=== PATIENT | female | born 1955 | race Caucasian/White ===

== ENCOUNTER 2019-08-04 07:27 | Inpatient (IN) | payer BC, MEDICARE ==
[2019-08-04] MEDS ORDERED: PIPERACILLIN/TAZOBACTAM 4.5 GM VIAL IV ONE (07:41)
[2019-08-04] MEDS ORDERED: ATROPINE SULFATE INJ 1 MG/10 ML DISP.SYRIN IV ONE (07:41)
[2019-08-04] MEDS ORDERED: VANCOMYCIN HCL INJ 1000 MG VIAL IV ONE (07:41)
[2019-08-04] MEDS ORDERED: DEXTROSE 5%-WATER 250 ML with NOREPINEPHRINE BITARTRATE 4 MG IV PRN ×2 (07:41)
[2019-08-04] MEDS ORDERED: NORMAL SALINE IV ONE (07:44)
--- NOTE | 2019-08-04 07:55 | ER Document Report ---
ED General - General Chief Complaint: Altered Mental Status Stated Complaint: ALTERED MENTAL STATUS Time Seen by Provider: 08/04/19 07:40 Primary Care Provider: LEAH ROMERO MD [Primary Care Provider] - Follow up as needed TRAVEL OUTSIDE OF THE [place] IN LAST 30 DAYS: No - HPI Notes: Chief complaint: Altered mental status and hypotension HPI: 63-year-old female with history of end-stage renal disease on dialysis brought in by EMS after call for altered mental status. No family present. Very limited history available from EMS crew. Apparently this lady had an outpatient lung biopsy done yesterday for a pulmonary nodule. Family reported that she was at her usual baseline when she went to bed last night. When she awakened this morning she was very altered but moving all 4 extremities. EMS was called. They documented bedside glucose of 265. Family members advised them that she had been given a dose of some type of benzodiazepine last night before going to sleep. EMS also documented a systolic blood pressure of 60. They were unable to get any IV access in the field and transported her here. Patient is minimally responsive and able to tell me her name but cannot really provide much other history. - Related Data Allergies/Adverse Reactions: levofloxacin [From Levaquin] Allergy (Verified 08/04/19 08:12) NSAIDS (Non-Steroidal Anti-Inflamma Allergy (Verified 08/04/19 08:12) Past Medical History - General Information source: Patient, Emergency Med Personnel, [facility] Records Cannot obtain history due to: Altered mental status - Social History Smoking Status: Unknown if Ever Smoked Chew tobacco use (# tins/day): No Frequency of alcohol use: None Drug Abuse: None Lives with: Family Family History: Reviewed & Not Pertinent Patient has homicidal ideation: No Review of Systems - Review of Systems -: Yes ROS unobtainable due to patient's medical condition Physical Exam - Vital signs Vitals: Temp 98.7 F 08/04/19 07:28 - Notes Notes: GENERAL: Female patient of approximately stated age who is obtunded. SKIN: Pale, cool and slightly moist. HEAD: Normocephalic atraumatic. EYES: Pupils are mid position equal and sluggish in reaction to light. Conjunctivae and sclerae clear. EARS: CANALS AND TMS CLEAR. NOSE: CLEAR. MOUTH: Moist mucosa. Edentulous. No stridor or edema. No drooling. NECK: Supple. No masses or thyromegaly. No adenopathy. Carotids 2+ without bruits. No JVD. BACK: Symmetrical without tenderness. CHEST: Respirations unlabored. Breath sounds clear and symmetrical. Patient has a Band-Aid dressing over the right side of the chest at the posterior axillary line at about the 10th interspace. HEART: Healed CABG scar present. Bradycardic regular rhythm. No murmur gallop or rub. ABDOMEN: Mildly obese. Healed right upper quadrant scar present soft nontender without masses, organomegaly or rebound. Bowel sounds normally active. No bruits. GENITALIA: Deferred. EXTREMITIES: AV fistula present left upper extremity with positive thrill and bruit no edema. No calf tenderness. Cap refill less than 1.5 seconds. Dorsalis pedis and posterior tibial pulses 3+ and symmetrical. NEUROLOGICAL: GCS 12 total. Opens eyes to loud verbal stimuli. Localizes pain. Oriented to person and place but not time. Cranial nerves II through XII intact. Moving extremities symmetrically normal tone. Course - Re-evaluation Re-evalutation: 08/04/19 08:18 Patient has GCS of about 12. She looks shocky and her blood pressure is around 60 systolic. She has a right bundle branch block and junctional rhythm on EKG. I still have her potassium back which has been requested. Lactate is elevated at 7.5. Blood cultures have been pulled. Sepsis protocol initiated. IV vancomycin and Zosyn administered. Pressure up to 87 systolic with initiation of fluid bolus and levofed. Chest x-ray reviewed and shows no obvious pneumothorax. Galarza catheter is been placed and urine is present. Urinalysis still unreported. Present findings discussed with Dr. Cooper from critical care unit and he is excepted the patient for admission. - Vital Signs Vital signs: Temp Pulse Resp BP Pulse Ox 98.7 F 93 08/04/19 07:28 08/04/19 07:30 - Laboratory Laboratory results interpreted by me: 08/04/19 07:45 Lactic Acid 7.5 H - Diagnostic Test Radiology results interpreted by me: 08/04/19 08:20 Preliminary review of the portable chest x-ray shows atelectasis versus early infiltrate right base. No pneumothorax. Postsurgical changes from prior CABG. - EKG Interpretation by Me Additional EKG results interpreted by me: 08/04/19 08:20 12-lead EKG #1 at 0731 hrs. reviewed contemporaneously by me showing accelerated junctional rhythm and right bundle branch block. No acute ST or T wave changes. QRS axis is +59 degrees. Rate is 51. There are no acute ST/T wave changes. There is no earlier tracing for comparison. Second EKG a repeat obtained at 0817 hrs. reviewed contemporaneously by me. This shows a sinus tachycardia with a rate of 101. QRS axis is 61 degrees. There is some widening of the QRS interval consistent with right bundle branch block. No acute ST/T wave changes are present. The junctional rhythm has now converted to a sinus tachycardia. Critical Care Note - Critical Care Note Total time excluding time spent on procedures (mins): 35 - Sepsis protocol initiated. I/O placement. Junctional cardiac rhythm treated with IV atropine. Levophed drip initiated. ICU admission by Dr. Cooper. Discharge - Discharge Clinical Impression: Shock, Altered mental status, Junctional cardiac arrhythmia Condition: Critical Disposition: ADMITTED INPATIENT Admitting Provider: Kenneth (Informal Waiter/Waitress) Unit Admitted: ICU Referrals: LEAH ROMERO MD [Primary Care Provider] - Follow up as needed
--- NOTE | 2019-08-04 08:39 | RADIOLOGY REPORT (SQ) ---
EXAM DESCRIPTION: CHEST SINGLE VIEW IMAGES COMPLETED DATE/TIME: 08/04/2019 7:05 am REASON FOR STUDY: shock COMPARISON: None. EXAM PARAMETERS: NUMBER OF VIEWS: One view. TECHNIQUE: Single frontal radiographic view of the chest acquired. RADIATION DOSE: NA LIMITATIONS: None. FINDINGS: LUNGS AND PLEURA: Are patchy perihilar and alveolar opacities in both lungs. Probable sma ll left pleural effusion. Peripheral hazy opacity in the right mid lung. No pneumothorax. MEDIASTINUM AND HILAR STRUCTURES: No masses. Contour normal. HEART AND VASCULAR STRUCTURES: Postoperative changes consistent with prior CABG. Moderate cardiomega ly. Indistinctness of the vasculature. BONES: No acute findings. HARDWARE: None in the chest. OTHER: No other significant finding. IMPRESSION: Moderate cardiomegaly with mild pulmonary edema. Hazy peripheral opacity in the right m id lung may represent infectious or inflammatory process. TECHNICAL DOCUMENTATION: JOB ID: [id number] 2010 [employer]- All Rights Reserved Reading location - IP/workstation name: [email or web address]
[2019-08-04] MEDS ORDERED: DEXTROSE 40% GEL 15 GM TUBE PO PRN ×2 (08:40)
[2019-08-04] MEDS ORDERED: DEXTROSE 50%-WATER 25 GM/50 ML DISP.SYRIN IV PRN ×2 (08:40)
[2019-08-04] MEDS ORDERED: GLUCAGON,HUMAN RECOMB 1 MG INJ SUBCUT PRN (08:40)
[2019-08-04 08:58] LABS: APPEARANCE,URINE SLIGHTLY-CLOUDY; BILIRUBIN,URINE NEGATIVE (NEGATIVE); COLOR,URINE YELLOW; GLUCOSE, URINE >=500 mg/dL (NEGATIVE); KETONES,URINE NEGATIVE (NEGATIVE); PROTEIN,URINE >=500 mg/dL (NEGATIVE); URINE SPECIFIC GRAVITY 1.015; UROBILINOGEN,URINE NEGATIVE mg/dL (<2.0)
[2019-08-04 09:00] LABS: HEMOGLOBIN 10.8 g/dL (12.0-15.5); MEAN CORPUSCULAR HEMOGLOBIN 33.7 pg (27.0-33.4); MEAN CORPUSCULAR HGB CONC 32.8 g/dL (32.0-36.0); MEAN CORPUSCULAR VOLUME 103 fl (80-97); PLATELET COUNT 318 10^3/uL (150-450); RED BLOOD COUNT 3.21 10^6/uL (3.72-5.28); RED CELL DISTRIBUTION WIDTH 14.9 % (11.5-14.0); WHITE BLOOD COUNT 11.6 10^3/uL (4.0-10.5)
[2019-08-04 09:03] LABS: VENOUS BLOOD BASE EXCESS -13.5 mmol/L; VENOUS BLOOD HCO3 16.4 mmol/L (20-32); VENOUS BLOOD PCO2 54.8 mmHg (35-63)
[2019-08-04 09:05] LABS: VENOUS BLOOD PH 7.09 (7.30-7.42)
--- NOTE | 2019-08-04 09:14 | RADIOLOGY REPORT (SQ) ---
EXAM DESCRIPTION: CT HEAD WITHOUT IMAGES COMPLETED DATE/TIME: 08/04/2019 8:53 am REASON FOR STUDY: altered mental status ams COMPARISON: None. TECHNIQUE: Axial images acquired through the brain without intravenous contrast. Images reviewed wi th bone, brain and subdural windows. Additional sagittal and coronal reconstructions were generated. Images stored on PACS. All CT scanners at this facility use dose modulation, iterative reconstruction, and/or weight based d osing when appropriate to reduce radiation dose to as low as reasonably achievable (ALARA). [facility]: Dose Right [facility]: CareDose [facility]: Dose Right [facility]: Teradose 4D [facility]: [place] RADIATION DOSE: CT Rad equipment meets quality standard of care and radiation dose reduction techniq ues were employed. CTDIvol: 53.2 mGy. DLP: 991 mGy-cm. LIMITATIONS: None. FINDINGS: There is no acute intracranial hemorrhage, vascular territorial infarct, extra-axial fluid collection, mass effect or midline shift. The case-white matter differentiation is preserved. Ther e is no effacement of the cerebral sulci or basal subarachnoid cisterns. The caliber of the ventricl es is concordant with the degree of sulcation. The orbits and globes are intact. The paranasal sinuses are clear. There is no fracture of the calv arium. IMPRESSION: No acute intracranial abnormality. EVIDENCE OF ACUTE STROKE: NO. COMMENT: Quality ID # [id number]: Final reports with documentation of one or more dose reduction techniques (e.g., Automated exposure control, adjustment of the mA and/or kV according to patient size, use of iterative reconstruction technique) TECHNICAL DOCUMENTATION: JOB ID: [id number] 2010 [employer]- All Rights Reserved Reading location - IP/workstation name: [email or web address]
[2019-08-04] MEDS ORDERED: NOREPINEPHRINE BITARTRATE INJ/PF 4 MG/4 ML SDV IV ONE (09:15)
[2019-08-04 09:18] LABS: INTERNATIONAL RATION (INR) 1.34; PROTHROMBIN TIME 16.7 SEC (11.4-15.4)
[2019-08-04 09:23] LABS: ALBUMIN 3.1 g/dL (3.5-5.0); ALKALINE PHOSPHATASE 131 U/L (38-126); AMYLASE 39 U/L (30-110); ANION GAP 16 (5-19); ASPARTATE AMINO TRANSFERASE 190 U/L (14-36); BILIRUBIN,DIRECT 1.2 mg/dL (0.0-0.4); BILIRUBIN,TOTAL 2.1 mg/dL (0.2-1.3); BLOOD UREA NITROGEN 32 mg/dL (7-20); CALCIUM 8.2 mg/dL (8.4-10.2); CARBON DIOXIDE 15 mmol/L (22-30); CHLORIDE 100 mmol/L (98-107); GLUCOSE 191 mg/dL (75-110); PHOSPHORUS 9.2 mg/dL (2.5-4.5)
[2019-08-04 09:29] LABS: ABSOLUTE LYMPHOCYTES# (MANUAL) 1.6 10^3/uL (0.5-4.7); ABSOLUTE MONOCYTES # (MANUAL) 0.7 10^3/uL (0.1-1.4); BAND NEUTROPHILS % (MANUAL) 1 % (3-5); BASOPHILS % (MANUAL) 0 % (0-2); EOSINOPHILS % (MANUAL) 0 % (0-6); LYMPHOCYTES % (MANUAL) 14 % (13-45); MONOCYTES % (MANUAL) 6 % (3-13); NUCLEATED RED BLOOD CELLS 1 /100 WBC (0); PLATELET COMMENT ADEQUATE; SEGMENTED NEUTROPHILS % (MAN) 79 % (42-78); TOTAL CELLS COUNTED 100
[2019-08-04 09:30] LABS: POLYCHROMASIA SLIGHT
[2019-08-04] MEDS ORDERED: HEPARIN SOD (PORCINE) 5,000 UNIT/ML 1 ML VIAL SUBCUT ONE (09:30)
[2019-08-04 09:31] LABS: ANISOCYTOSIS SLIGHT
[2019-08-04 09:32] LABS: OVALOCYTES SLIGHT; POIKILOCYTOSIS SLIGHT
[2019-08-04 09:33] LABS: URINE AMPHETAMINES SCREEN NEGATIVE; URINE BARBITURATES SCREEN NEGATIVE; URINE COCAINE SCREEN NEGATIVE; URINE MARIJUANA (THC) SCREEN NEGATIVE; URINE METHADONE SCREEN NEGATIVE; URINE PHENCYCLIDINE SCREEN NEGATIVE
[2019-08-04 09:35] LABS: URINE BENZODIAZEPINES SCREEN UNCONFIRMED POSITIVE
[2019-08-04 09:35] LABS: POTASSIUM 6.6 mmol/L (3.6-5.0)
[2019-08-04] MEDS ORDERED: SODIUM BICARBONATE 8.4% INJ 50 MEQ/50 ML DISP.SYRIN IV ONE ×2 (09:39→10:15)
[2019-08-04 09:47] LABS: CREATINE KINASE MB 3.35 ng/mL (<4.55)
[2019-08-04 09:49] LABS: TROPONIN I 0.244 ng/mL
[2019-08-04 09:53] LABS: FREE T4 (FREE THYROXINE) 1.72 ng/dL (0.78-2.19)
[2019-08-04 10:07] LABS: THYROID STIMULATING HORMONE 1.88 uIU/mL (0.47-4.68)
[2019-08-04] MEDS ORDERED: DEXTROSE 50%-WATER 25 GM/50 ML DISP.SYRIN IV ONE (10:15)
[2019-08-04] MEDS ORDERED: INSULIN REG, HUMAN 100 UNIT/ML 3 ML VIAL (PYX) IV ONE (10:15)
[2019-08-04] MEDS ORDERED: CALCIUM GLUCONATE 1000 MG/10 ML INJ IV ONE (10:15)
[2019-08-04 11:26] LABS: ARTERIAL BLOOD H2CO3 1.87 mmol/L (1.05-1.35); ARTERIAL BLOOD HCO3 21.9 mmol/L (20-24); ARTERIAL BLOOD PCO2 62.1 mmHg (35-45); ARTERIAL BLOOD PO2 68.2 mmHg (80-100); ARTERIAL BLOOD TOTAL CO2 23.8 mmol/L (21-25)
[2019-08-04 11:29] LABS: ARTERIAL BLOOD PH 7.17 (7.35-7.45)
--- NOTE | 2019-08-04 12:49 | CRITICAL CARE ADMISSION REPORT ---
HPI Date:: 08/04/19 Time:: 07:40 Reason for ICU Reason:: Shock with sepsis and acute metabolic encephalopathy HPI: Demi Lau is a 63-year-old female who appears to have a history of CKD 5 on dialysis and some type of lung process that required a lung biopsy at [facility] yesterday. According to the emergency room she came in with altered mental status. There is a question and concerned that she was given benzodiazepines last night. She was apparently found altered by her family and EMS was called. We have contacted family but unfortunately they have not been in contact with us and they were not in the emergency room at time of the evaluation. The ED discussed the fact the patient had bradycardia with hypotension that was treated with atropine and transiently with Levophed. She had very difficult IV access and an intraosseous catheter was placed. Her EKG showed bradycardia which was an accelerated junctional rhythm and a right bundle branch block. It did not have any robust ST segment changes however there was some widening of some of the QRS complex because of the block. I evaluated the patient in the emergency room and while in the ICU. It was very difficult to get an examination from her and she was very lethargic. Labs were pending at time of our evaluation but what we do know is that her pH was 7 with a lactic acid of 7.5. We could not get any endorsement for chest pain, shortness of breath, fever, cough. Initial work-up in the emergency room was done including labs. Some of the labs are still pending CAT scan shows negative for any head pathology chest x-ray shows a right upper lobe mass but no pneumothorax specifically. Repeat EKG after treatment shows a sinus tachycardia with right bundle branch block pattern and a left fascicular block pattern. She does have surgical sternal changes and tracheal scar suggesting that she has had some type of cardiac surgery in the past. There are no previous admissions here for evaluation for past medical history. I was able to finally get in touch with the patient's . He states that she did in fact have a biopsy yesterday and was given medication to help with anxiolysis and pain. She took that in the afternoon. She had been doing well but in the middle the night had to use the bathroom and was very discoordinated and confused. He was unable to get her to the bathroom because of her change in status. This is what prompted the call to EMS. He denies that she has had any fever, chills, cough or night sweats. There is no source for infection as far as he can tell. She does urinate. As far as her past medical history which will be further elucidated below, she has a history of type 2 diabetes and hypertension as well as obesity. She had a CABG at what appears to be [facility] or [facility] a number of years ago which led to the renal failure. She was quite ill for about 30 days. He does endorse that there is a lung mass which prompted the biopsy. No history of alcohol use. She is a former smoker but stopped 2 years ago. Her animal health technician is Dr. Mueller from [facility] but she goes to [facility] for her dialysis Wednesday. They decided to change her to Wednesday and Wednesday for a more convenient schedule. The stated that he had her dialysis set up for tomorrow (Wednesday) at 1030. History obtained from:: ED - Diagnosis/Plan (1) Shock Is this a current diagnosis for this admission?: Yes Plan: Appears to be sepsis however other forms of shock are being evaluated. (2) Lactic acidosis Is this a current diagnosis for this admission?: Yes (3) Acute renal failure superimposed on chronic kidney disease, on chronic dialysis Is this a current diagnosis for this admission?: Yes (4) Acute metabolic encephalopathy Is this a current diagnosis for this admission?: Yes Plan: Suspect related to benzodiazepine intent not declared (5) Lung mass Is this a current diagnosis for this admission?: Yes (6) Hyperkalemia, diminished renal excretion Is this a current diagnosis for this admission?: Yes (7) Paroxysmal junctional tachycardia Is this a current diagnosis for this admission?: Yes Plan Summary: Respiratory: Patient does not appear to have any current respiratory issues other than what appears to be a right lung mass. We will try to acquire medical records from the [facility] to determine what the issues are. She appears to have a chemical marker in the right upper chest suspicious for radiation marker. We will also attempt to contact the family. Infectious: Although this appears to be a benzodiazepine induced encephalopathy with parameters suggestive of hypercarbia related to this she does have lactic acidosis, hypothermia and elevation in white count to suggest that this is sepsis related. Have placed on broad-spectrum antibiotics and will continue these. Obviously cultures are being done and source is under investigation. Cardiac: Will attempt to obtain echocardiogram at bedside to determine function. Patient was hypotensive however this may be a manifestation related to acidosis and hyperkalemia. Continue to monitor and adjust vasopressor therapy as needed. Follow troponin and CK to rule out rhabdomyolysis and cardiac dysfunction. She does have evidence of prior cardiac surgery and will attempt to obtain records to determine what type of surgery was done. Hematologic: Patient has currently no significant hematologic issues. She does have a leukocytosis suggestive of infection and mild anemia which appears to be chronic and related to her disease. She does have mild bandemia as well. Platelet count is acceptable 318 Endocrine: Will check a cortisol level. TSH appears acceptable. Unsure if the patient has diabetes and so will check Accu-Cheks insulin as needed. Renal: Patient obviously has CKD 5 hemodialysis dependent renal failure. Given her acidosis and hyperkalemia in addition to the benzodiazepine in her system will need dialysis today. Have consulted the nephrology service. Metabolic: Patient has hyperkalemia with acidosis. With obvious EKG changes have given her calcium lined with bicarbonate and insulin with glucose. She does have a lactic acidosis which may also be reflective of renal failure and sepsis. Again etiology is under investigation. On examination I am not finding any areas to suggest ischemic bowel. Alimentary: No active gastrointestinal issues. Follow supportively Neurologic: Patient has acute metabolic encephalopathy. This may be secondary to benzodiazepine use last evening in the face with of renal failure. She also has hypotension and given what appears to be peripheral vascular disease this hypotension may have caused decreased blood flow to the brain. CAT scan is unremarkable. Will follow and monitor. Have asked for ammonia level and urine drug screen which only showed benzodiazepines in her system. This does not rule out other surreptitious medications and will attempt to obtain history from family. There is no indication that this represents an infectious MORPHOLOGIST process but will have low threshold to evaluate for need for spinal tap. Sedation: No sedation. Patient appears to have benzodiazepines in her system. Unable to determine whether this was a accidental overdose or iatrogenic given her renal failure. We will continue to monitor. Lines/Tubes: Patient has interosseous catheter secondary to poor venous access. Will obviously need a central line. Other: [] Past Medical History Cardiac Medical History: Reports: Coronary Artery Disease, Myocardial Infarction, Hyperlipidema, Hypertension Endocrine Medical History: Reports: Diabetes Mellitus Type 2 Renal/ Medical History: Reports: Chronic Kidney Disease, End Stage Renal Disease, Other - On dialysis Malignancy Medical History: Reports: Other - Has questionable lung mass Psychiatric Medical History: Reports: None Denies: Alcohol Dependency Hematology: Reports: None Past Surgical History Past Surgical History: Reports: Cardiac Catheterization, Coronary Artery Bypass Graft - X4 Social/Family History - Social History Lives with: Family, Spouse/Significant other Smoking Status: Former Smoker Frequency of Alcohol Use: None Hx Recreational Drug Use: No - Family History Family History: CAD, DM, Malignancy Family History: Mother at age 61 secondary to heart attack; father at an elder age of 82 secondary to complications of diabetes and hypertension; young brother who at the age of 20 from colon cancer. - Medication/Allergies Home Medications: Albuterol Sulfate [Albuterol Sulfate Hfa] 2 puff IH Q4HP PRN 08/04/19 Aspirin [Adult Low Dose Aspirin EC] 81 mg PO DAILY 08/04/19 Atorvastatin Calcium [Lipitor 40 mg Tablet] 40 mg PO DAILY 08/04/19 B,C/Ferrous Fum/FA/D3/Zinc Ox [Prorenal Vital Multivit Tab] 1 tab PO DAILY 08/04/19 Carvedilol 25 mg PO BID 08/04/19 Clonazepam 0.5 mg PO BIDP PRN 08/04/19 Escitalopram Oxalate [Lexapro 10 mg Tablet] 10 mg PO DAILY 08/04/19 Furosemide [Lasix 80 mg Tablet] 80 mg PO QID 08/04/19 Gabapentin [Neurontin 100 mg Capsule] 100 mg PO Q8H 08/04/19 Insulin Aspart [Novolog Flexpen] 0 units SUBCUT .SLIDING SCALE 08/04/19 Insulin Glargine,Hum.rec.anlog [Lantus Insulin 100 Unit/mL Insulin Pen] 40 units SUBCUT QPM 08/04/19 Insulin Glargine,Hum.rec.anlog [Lantus Insulin 100 Unit/mL Insulin Pen] 60 units SUBCUT QAM 08/04/19 Methocarbamol 500 mg PO TID 08/04/19 Metolazone [Zaroxolyn 5 mg Tablet] 10 mg PO QAM 08/04/19 Oxycodone HCl [Oxy-Ir 5 mg Tablet] 5 mg PO Q6HP PRN 08/04/19 Potassium Chloride [Klor-Con M20] 20 meq PO DAILY 08/04/19 Sevelamer Carbonate 800 mg PO TID 08/04/19 Telmisartan 40 mg PO DAILY 08/04/19 Tiotropium [place] [Spiriva Respimat] 2 puff IH DAILY 08/04/19 Allergies/Adverse Reactions: levofloxacin [From Levaquin] Allergy (Verified 08/04/19 08:12) NSAIDS (Non-Steroidal Anti-Inflamma Allergy (Verified 08/04/19 08:12) Review of Systems ROS unobtainable: Due to mental status Physical Exam Vital Signs: Temp Pulse Resp BP Pulse Ox 98.7 F 102 H 15 99/63 L 94 08/04/19 07:28 08/04/19 07:44 08/04/19 08:36 08/04/19 08:36 08/04/19 08:36 Intake & Output 08/03/19 08/04/19 08/05/19 06:59 06:59 06:59 Intake Total 11 Balance 11 Weight 89.7 kg Weight/Height Weight 89.7 kg General appearance: PRESENT: disheveled, obese Exam: Altered non. -Intubated 63-year-old female who is difficult to arouse. She does answer yes or no questions when stimulated with noxious stimulus. She is in no acute respiratory distress Head exam: PRESENT: atraumatic, normocephalic Eye exam: PRESENT: conjunctiva pink, PERRLA. ABSENT: conjunctival injection, nystagmus, scleral icterus Mouth exam: PRESENT: moist, neck supple, tongue midline Teeth exam: PRESENT: poor dentation Neck exam: PRESENT: tracheostomy. ABSENT: JVD, lymphadenopathy, meningismus, thyromegaly, tracheal deviation Respiratory exam: PRESENT: clear to auscultation malissa, unlabored. ABSENT: accessory muscle use, rales, rhonchi, tachypnea, wheezes Cardiovascular exam: PRESENT: bradycardia, +S1, +S2, other - Critical care ultrasound and basic echo shows underfilled IVC left ventricle appears underfilled as well.. ABSENT: rubs Pulses: ABSENT: normal dorsalis pedis pul Vascular exam: PRESENT: normal capillary refill. ABSENT: pallor GI/Abdominal exam: PRESENT: normal bowel sounds, soft. ABSENT: ascites, distended, guarding, mass, organolmegaly, rebound, tenderness Rectal exam: PRESENT: deferred Gentrourinary exam: PRESENT: indwelling catheter Extremities exam: PRESENT: pedal edema Musculoskeletal exam: PRESENT: dislocation, other - Left tibial interosseous needle present. ABSENT: deformity Neurological exam: PRESENT: altered, other - [place] Coma Scale 3-4-6 inconsistent. No focal deficits Psychiatric exam: PRESENT: agitated - When stimulated, unusual affect Focused psych exam: PRESENT: catatonic, restlessness Skin exam: PRESENT: normal color. ABSENT: cyanosis, erythema, jaundice, pallor, petechiae, urticaria - Intraosseous needle left leg, Galarza type urinary catheter, vesicles Laboratory/Radiographs Laboratory Results: 08/04/19 08/04/19 08/04/19 07:40 07:45 08:43 VBG pH 7.09 L* VBG pCO2 54.8 VBG HCO3 16.4 L VBG Base Excess -13.5 Lactic Acid 7.5 H Urine Color YELLOW Urine Appearance SLIGHTLY-CLOUDY Urine pH 6.0 Ur Specific [place] 1.015 Urine Protein >=500 H Urine Glucose (UA) >=500 H Urine Ketones NEGATIVE Urine Blood MODERATE H Urine RBC (Auto) 3 Impressions: Head CT 08/04/19 00:00 IMPRESSION: No acute intracranial abnormality. EVIDENCE OF ACUTE STROKE: NO. Chest X-Ray 08/04/19 07:42 IMPRESSION: Moderate cardiomegaly with mild pulmonary edema. Hazy peripheral opacity in the right mid lung may represent infectious or inflammatory process. All labs, radiographs, diagnostic studies and EKGs were personally reviewed: Yes In addition, reports of radiographic and diagnostic studies were read: Yes Critical Time Critical Time (minutes): 90 -: The care of a critically ill patient is dynamic. This note represents a static moment in the admission process. Orders and treatments may be given simultaneously and urgently, and time is not manufacturer's representative of the treatment process. This patient requires Critical Care secondary to life threatening organ or limb dysfunction. Without Critical Care services, the patient is at risk for increased mortality and morbidity.
[2019-08-04] MEDS ORDERED: VANCOMYCIN HCL 0 MG in DEXTROSE 5%-WATER 250 ML IV NR (15:30)
--- NOTE | 2019-08-04 15:33 | EKG REPORT ---
SEVERITY:- ABNORMAL ECG - ACCELERATED JUNCTIONAL ESCAPE RHYTHM RIGHT BUNDLE BRANCH BLOCK : Confirmed by: Rachid Gonzales MD 04-Aug-2019 15:32:50
[2019-08-04] MEDS: INSULIN REG, HUMAN 100 UNIT/ML 3 ML VIAL (PYX) SUBCUT SCH ×2 (16:57→20:42)
[2019-08-04] MEDS: HEPARIN SOD (PORCINE) 5,000 UNIT/ML 1 ML VIAL SUBCUT SCH ×2 (16:57→21:09)
[2019-08-04] MEDS: ACETAMINOPHEN 325 MG TABLET PO PRN ×2 (17:02→21:09)
[2019-08-04] MEDS ORDERED: VANCOMYCIN HCL 1,000 MG in DEXTROSE 5%-WATER 250 ML IV ONE (18:00)
[2019-08-04] MEDS ORDERED: CEFEPIME 1 GM/D5W RTU 1 GM/50 ML RTUPB IV ONE (19:00)
--- NOTE | 2019-08-04 21:21 | EKG REPORT ---
SEVERITY:- ABNORMAL ECG - SINUS TACHYCARDIA RBBB AND LPFB NONSPECIFIC ST-T CHANGES- INFERIOR LEADS : Confirmed by: Rachid Gonzales MD 04-Aug-2019 21:20:17
[2019-08-04] MEDS ORDERED: DIPHENHYDRAMINE HCL 50 MG/ML VIAL IV ONE (23:30)
[2019-08-05] MEDS ORDERED: HYDRALAZINE HCL INJ/PF 20 MG/1 ML SDV IV ONE (00:30)
[2019-08-05 04:04] LABS: VENOUS BLOOD BASE EXCESS -2.3 mmol/L; VENOUS BLOOD HCO3 24.1 mmol/L (20-32); VENOUS BLOOD PCO2 48.8 mmHg (35-63); VENOUS BLOOD PH 7.31 (7.30-7.42)
[2019-08-05 04:30] LABS: PROTHROMBIN TIME 16.3 SEC (11.4-15.4)
[2019-08-05 04:31] LABS: ALBUMIN 3.2 g/dL (3.5-5.0); ALKALINE PHOSPHATASE 165 U/L (38-126); ANION GAP 13 (5-19); ASPARTATE AMINO TRANSFERASE 561 U/L (14-36); BILIRUBIN,DIRECT 0.4 mg/dL (0.0-0.4); BLOOD UREA NITROGEN 23 mg/dL (7-20); CALCIUM 9.2 mg/dL (8.4-10.2); CARBON DIOXIDE 22 mmol/L (22-30); CHLORIDE 97 mmol/L (98-107); GLUCOSE 241 mg/dL (75-110); POTASSIUM 4.2 mmol/L (3.6-5.0); TOTAL PROTEIN 6.3 g/dL (6.3-8.2)
[2019-08-05 04:41] LABS: PHOSPHORUS 6.2 mg/dL (2.5-4.5)
[2019-08-05] MEDS: INSULIN REG, HUMAN 100 UNIT/ML 3 ML VIAL (PYX) SUBCUT SCH ×5 (06:00→16:42)
[2019-08-05] MEDS: HEPARIN SOD (PORCINE) 5,000 UNIT/ML 1 ML VIAL SUBCUT SCH ×2 (06:01→16:11)
[2019-08-05 06:52] LABS: ABSOLUTE MONOCYTES (AUTO) 0.6 10^3/uL (0.1-1.4); HEMOGLOBIN 9.9 g/dL (12.0-15.5); TOTAL CELLS COUNTED % (AUTO) 100 %
[2019-08-05 06:57] LABS: ABSOLUTE LYMPHOCYTES (AUTO) 0.9 10^3/uL (0.5-4.7); ABSOLUTE NEUT (AUTO) 13.3 10^3/uL (1.7-8.2); BASOPHILS % (AUTO) 0.2 % (0-2); HEMATOCRIT 28.1 % (36.0-47.0); LYMPHOCYTES % (AUTO) 5.8 % (13-45); MEAN CORPUSCULAR HGB CONC 35.2 g/dL (32.0-36.0); PLATELET COUNT 274 10^3/uL (150-450); WHITE BLOOD COUNT 14.8 10^3/uL (4.0-10.5)
[2019-08-05 06:58] LABS: MEAN CORPUSCULAR VOLUME 97 fl (80-97)
[2019-08-05] MEDS: ACETAMINOPHEN 325 MG TABLET PO PRN (07:54)
--- NOTE | 2019-08-05 08:19 | RADIOLOGY REPORT (SQ) ---
EXAM DESCRIPTION: CHEST SINGLE VIEW IMAGES COMPLETED DATE/TIME: 08/05/2019 6:27 am REASON FOR STUDY: aspiration COMPARISON: AP chest 08/04/2019 EXAM PARAMETERS: NUMBER OF VIEWS: One view. TECHNIQUE: Single frontal radiographic view of the chest acquired. RADIATION DOSE: NA LIMITATIONS: None. FINDINGS: LUNGS AND PLEURA: No opacities, masses or pneumothorax. No pleural effusion. MEDIASTINUM AND HILAR STRUCTURES: No masses. Contour normal. HEART AND VASCULAR STRUCTURES: Old sternotomy and CABG. Moderate cardiomegaly. BONES: No acute findings. HARDWARE: None in the chest. OTHER: No other significant finding. IMPRESSION: Old CABG, moderate cardiomegaly. No infiltrates. TECHNICAL DOCUMENTATION: JOB ID: [id number] 2010 [employer]- All Rights Reserved Reading location - IP/workstation name: [email or web address]
--- NOTE | 2019-08-05 09:44 | XCELERA REPORT ---
[address] [address] Transthoracic Echocardiogram Report Name: HUSSAIN HORTON Age: 63 yrs Gender: Female : 1955 Patient Status: Inpatient Patient Location: ICU^601^A Study Date: 08/04/2019 02:25 PM Height: 61 in Weight: 199 lb BSA: 1.9 m2 Procedure: A two-dimensional transthoracic echocardiogram with color flow and Doppler was performed. Study Quality: Technically suboptimal. Reason For Study: hypotension and lactic acidosis History: hypotension and lactic acidosis. Ordering Physician: ALEJANDRA WARNER Performed By: Ella Bobo Interpretation Summary The left ventricle is grossly normal size. Probably mild LVH with normal LVEF of greater than 55%.Probable hypokinesis of the inferior and inferoseptal wild. RV probably normal size.Not well visualllllllised. Probably normal Ra size and normal LA size.Cannot assess for ASD ,VSD , or PFO seen. There is no evidence of mitral valve prolapse. There is no vegetation seen on the mitral valve. There is no mitral valve stenosis. There is a trace to mild amount of mitral regurgitation There is no aortic valvular vegetation. There is aortic sclerosis without aortic stenosis. There is no LVOT obstruction. No aortic regurgitation is present. There is no tricuspid stenosis. There is a mild to moderate amount of tricuspid regurgitation There is mild to moderate pulmonary hypertension by echo RVSP is 45 to 50 mm of Hg , with RA mean of 15 to 20. There is no pulmonic valvular stenosis. There is a trace amount of pulmonic regurgitation The aortic root is not well visualized. The inferior vena cava appeared dilated and decreased < 50% with respiration (RAP 15-20 mmHg) There is no pericardial effusion. MMode/2D Measurements & Calculations RVDd: 2.9 cm LVIDd: 4.4 cm FS: 28.2 % Ao root diam: 3.2 cm IVSd: 1.5 cm LVIDs: 3.1 cm EDV(Teich): 85.9 ml Ao root area: LVPWd: 0.92 cm ESV(Teich): 38.9 ml 7.9 cm2 EF(Teich): 54.7 % LVOT diam: 2.0 cm EDV(MOD-sp4): SV(MOD-sp4): LVOT area: 64.0 ml 29.6 ml ESV(MOD-sp4): 3.1 cm2 34.4 ml EF(MOD-sp4): 46.2 % Doppler Measurements & Calculations MV E max chris: MV dec slope: Ao V2 max: LV V1 max P.4 cm/sec 199.9 cm/sec 7.9 mmHg MV A max chris: 636.7 cm/sec2 Ao max PG: LV V1 max: 152.3 cm/sec MV dec time: 16.0 mmHg 140.3 cm/sec MV E/A: 0.86 0.21 sec JUANCARLOS(V,D): 2.2 cm2 PA V2 max: PI end-d chris: TR max chris: 86.8 cm/sec 99.4 cm/sec 271.1 cm/sec PA max P.0 mmHg TR max P.1 mmHg Left Ventricle The left ventricle is grossly normal size. Probably mild LVH with normal LVEF of greater than 55%.Probable hypokinesis of the inferior and inferoseptal wild. Doppler measurements suggest impaired left ventricular relaxation, which is associated with grade I/IV or mild diastolic dysfunction. Right Ventricle RV probably normal size.Not well visualllllllised. Atria Probably normal Ra size and normal LA size.Cannot assess for ASD ,VSD , or PFO seen. Mitral Valve There is no evidence of mitral valve prolapse. There is no vegetation seen on the mitral valve. There is no mitral valve stenosis. There is a trace to mild amount of mitral regurgitation. Aortic Valve There is no aortic valvular vegetation. There is aortic sclerosis without aortic stenosis. There is no LVOT obstruction. No aortic regurgitation is present. Tricuspid Valve There is no tricuspid stenosis. There is a mild to moderate amount of tricuspid regurgitation. There is mild to moderate pulmonary hypertension by echo. RVSP is 45 to 50 mm of Hg , with RA mean of 15 to 20. Pulmonic Valve There is no pulmonic valvular stenosis. There is a trace amount of pulmonic regurgitation. Great Vessels The aortic root is not well visualized. The inferior vena cava appeared dilated and decreased < 50% with respiration (RAP 15-20 mmHg). Effusions There is no pericardial effusion. : ALEJANDRA WARNER Lakshmi
[2019-08-05] MEDS ORDERED: IRON SUCROSE COMPLEX INJ/PF 100 MG/5 ML SDV IV ONE (09:58)
--- NOTE | 2019-08-05 10:28 | EKG REPORT ---
SEVERITY:- ABNORMAL ECG - SINUS RHYTHM PROBABLE LEFT ATRIAL ABNORMALITY BORDERLINE T ABNORMALITIES, INFERIOR LEADS PROLONGED QT INTERVAL : Confirmed by: Rachid Gonzales MD 05-Aug-2019 10:27:14
[2019-08-05] MEDS ORDERED: INSULIN GLARGINE,HUM.REC.ANLOG 1,000 UNIT/10 ML VIAL (PYX) SUBCUT ONE (13:31)
[2019-08-05] MEDS ORDERED: FUROSEMIDE 40 MG TABLET ONE (13:31)
[2019-08-05] MEDS ORDERED: (PENDING PHARMACY ID) (Clonazepam [Clonazepam] 0.5 MG) PO PRN (14:27)
[2019-08-05] MEDS ORDERED: OXYCODONE HCL IR 5 MG TABLET PO PRN (14:27)
[2019-08-05] MEDS ORDERED: GABAPENTIN 100 MG CAPSULE PO PRN (14:27)
[2019-08-05] MEDS ORDERED: ESCITALOPRAM OXALATE 10 MG TABLET PO SCH (14:30)
[2019-08-05] MEDS ORDERED: ASPIRIN 81 MG TABLET, ENT COATED PO SCH (15:00)
[2019-08-05 15:37] VITALS: BP 133/69
--- NOTE | 2019-08-05 15:40 | PDOC DISCHARGE SUMMARY ---
Impression - Admit/DC Date/PCP Admission Date/Primary Care Provider: 08/04/19 08:26 JENNIFER KRAMER Discharge Date: 08/05/19 - Discharge Diagnosis (1) Acute metabolic encephalopathy Is this a current diagnosis for this admission?: Yes (2) Acute renal failure superimposed on chronic kidney disease, on chronic dialysis Is this a current diagnosis for this admission?: Yes (4) Lactic acidosis Is this a current diagnosis for this admission?: Yes (5) Lung mass Is this a current diagnosis for this admission?: Yes - Assessment Summary: This patient is a 63 yo woman who had a lung biopsy yesterday and was brought to this ED with hypotension, encephalopathy and a lactic acidosis of 7.5. Exactly why is the unknown question. All of the above has resolved. She is thinking clearly feels back to normal and wants to go home. I have no reason to keep her except to say the etiology is still uncertain. - Additional Information Resuscitation Status: Full Code Discharge Diet: Diabetic Discharge Activity: Activity As Tolerated Referrals: LEAH ROMERO MD [ACTIVE STAFF] - Follow up as needed Home Medications: Aspirin [Adult Low Dose Aspirin EC] 81 mg PO DAILY 08/04/19 Atorvastatin Calcium [Lipitor 40 mg Tablet] 40 mg PO DAILY 08/04/19 B,C/Ferrous Fum/FA/D3/Zinc Ox [Prorenal Vital Multivit Tab] 1 tab PO DAILY 08/04/19 Carvedilol 25 mg PO BID 08/04/19 Clonazepam 0.5 mg PO BIDP PRN 08/04/19 Escitalopram Oxalate [Lexapro 10 mg Tablet] 10 mg PO DAILY 08/04/19 Furosemide [Lasix 80 mg Tablet] 80 mg PO QAM 08/04/19 Gabapentin [Neurontin 100 mg Capsule] 200 mg PO ASDIR PRN MDD 200MG 08/04/19 Insulin Aspart [Novolog Flexpen] 0 units SUBCUT .SLIDING SCALE 08/04/19 Insulin Glargine,Hum.rec.anlog [Lantus Insulin 100 Unit/mL Insulin Pen] 80 units SUBCUT QAM 08/04/19 Methocarbamol 500 mg PO TID 08/04/19 Metolazone [Zaroxolyn 5 mg Tablet] 10 mg PO QAM 08/04/19 Oxycodone HCl [Oxy-Ir 5 mg Tablet] 5 mg PO Q6HP PRN 08/04/19 Potassium Chloride [Klor-Con M20] 20 meq PO DAILY 08/04/19 Sevelamer Carbonate 800 mg PO MEALS 08/04/19 Telmisartan 40 mg PO DAILY 08/04/19 Tiotropium [place] [Spiriva Respimat] 2 puff IH DAILY 08/04/19 History of Present Illiness History of Present Illness: HUSSAIN HORTON is a 63 year old female who developed disordered thinking yesterday about 4 AM. She was hypotensive, had a lactic acidosis all of which has resolved. My impression is some type of medication disruption but neither she nor I can account for this. Hospital Course Hospital Course: She has improved since admission. Was briefly on levophed but quickly came off. Is essentially at baseline now. Physical Exam Vital Signs: Temp Pulse Resp BP Pulse Ox 98.6 F 116 H 22 H 156/73 H 89 L 08/05/19 12:00 08/05/19 14:00 08/05/19 14:00 08/05/19 14:00 08/05/19 14:00 Intake & Output 08/04/19 08/05/19 08/06/19 06:59 06:59 06:59 Intake Total 3272 Output Total 2335 30 Balance 937 -30 Weight 90.5 kg 90.5 kg General appearance: PRESENT: no acute distress, well-developed, well-nourished Head exam: PRESENT: atraumatic, normocephalic Eye exam: PRESENT: conjunctiva pink, EOMI, PERRLA. ABSENT: scleral icterus Ear exam: PRESENT: normal external ear exam Mouth exam: PRESENT: moist, tongue midline Neck exam: ABSENT: carotid bruit, JVD, lymphadenopathy, thyromegaly Respiratory exam: PRESENT: clear to auscultation malissa. ABSENT: rales, rhonchi, wheezes Cardiovascular exam: PRESENT: tachycardia GI/Abdominal exam: PRESENT: normal bowel sounds, soft. ABSENT: distended, guarding, mass, organolmegaly, rebound, tenderness Rectal exam: PRESENT: deferred Extremities exam: PRESENT: full ROM. ABSENT: calf tenderness, clubbing, pedal edema Neurological exam: PRESENT: alert, awake, oriented to person, oriented to place, oriented to time, oriented to situation, CN II-XII grossly intact. ABSENT: motor sensory deficit Psychiatric exam: PRESENT: appropriate affect, normal mood. ABSENT: homicidal ideation, suicidal ideation Skin exam: PRESENT: dry, intact, warm. ABSENT: cyanosis, rash Results Laboratory Results: WBC 14.8 10^3/uL (4.0-10.5) H 08/05/19 06:44 RBC 2.90 10^6/uL (3.72-5.28) L 08/05/19 06:44 Hgb 9.9 g/dL (12.0-15.5) L 08/05/19 06:44 Hct 28.1 % (36.0-47.0) L 08/05/19 06:44 MCV 97 fl (80-97) D 08/05/19 06:44 MCH 34.0 pg (27.0-33.4) H 08/05/19 06:44 MCHC 35.2 g/dL (32.0-36.0) 08/05/19 06:44 RDW 14.0 % (11.5-14.0) 08/05/19 06:44 Plt Count 274 10^3/uL (150-450) 08/05/19 06:44 Lymph % (Auto) 5.8 % (13-45) L 08/05/19 06:44 [place] % (Auto) 4.0 % (3-13) 08/05/19 06:44 Eos % (Auto) 0.0 % (0-6) 08/05/19 06:44 Baso % (Auto) 0.2 % (0-2) 08/05/19 06:44 Absolute Neuts (auto) 13.3 10^3/uL (1.7-8.2) H 08/05/19 06:44 Absolute Lymphs (auto) 0.9 10^3/uL (0.5-4.7) 08/05/19 06:44 Absolute Monos (auto) 0.6 10^3/uL (0.1-1.4) 08/05/19 06:44 Absolute Eos (auto) 0.0 10^3/uL (0.0-0.6) 08/05/19 06:44 Absolute Basos (auto) 0.0 10^3/uL (0.0-0.2) 08/05/19 06:44 Total Counted 100 08/04/19 08:25 Seg Neutrophils % 90.0 % (42-78) H 08/05/19 06:44 Seg Neuts % (Manual) 79 % (42-78) H 08/04/19 08:25 Band Neutrophils % 1 % (3-5) L 08/04/19 08:25 Lymphocytes % (Manual) 14 % (13-45) 08/04/19 08:25 Monocytes % (Manual) 6 % (3-13) 08/04/19 08:25 Eosinophils % (Manual) 0 % (0-6) 08/04/19 08:25 Basophils % (Manual) 0 % (0-2) 08/04/19 08:25 Abs Neuts (Manual) 9.3 10^3/uL (1.7-8.2) H 08/04/19 08:25 Abs Lymphs (Manual) 1.6 10^3/uL (0.5-4.7) 08/04/19 08:25 Abs Monocytes (Manual) 0.7 10^3/uL (0.1-1.4) 08/04/19 08:25 Absolute Eos (Manual) 0.0 10^3/uL (0.0-0.6) 08/04/19 08:25 Abs Basophils (Manual) 0.0 10^3/uL (0.0-0.2) 08/04/19 08:25 Nucleated RBCs 1 /100 WBC (0) 08/04/19 08:25 Platelet Estimate Cancelled 08/05/19 03:47 Platelet Comment ADEQUATE 08/04/19 08:25 Polychromasia SLIGHT 08/04/19 08:25 Poikilocytosis SLIGHT 08/04/19 08:25 Anisocytosis SLIGHT 08/04/19 08:25 Macrocytosis 1+ 08/04/19 08:25 Ovalocytes SLIGHT 08/04/19 08:25 PT 16.3 SEC (11.4-15.4) H 08/05/19 03:47 INR 1.30 08/05/19 03:47 APTT 31.0 SEC (23.5-35.8) 08/05/19 03:47 Carbonic Acid 1.87 mmol/L (1.05-1.35) H 08/04/19 11:10 HCO3/H2CO3 Ratio 11:1 08/04/19 11:10 ABG pH 7.17 (7.35-7.45) L* 08/04/19 11:10 ABG pCO2 62.1 mmHg (35-45) H 08/04/19 11:10 ABG pO2 68.2 mmHg (80-100) L 08/04/19 11:10 ABG HCO3 21.9 mmol/L (20-24) 08/04/19 11:10 ABG Total CO2 23.8 mmol/L (21-25) 08/04/19 11:10 ABG O2 Saturation 88.0 % (94-98) L 08/04/19 11:10 ABG Base Excess -7.0 mmol/L 08/04/19 11:10 VBG pH 7.31 (7.30-7.42) 08/05/19 03:47 VBG pCO2 48.8 mmHg (35-63) 08/05/19 03:47 VBG HCO3 24.1 mmol/L (20-32) 08/05/19 03:47 VBG Base Excess -2.3 mmol/L 08/05/19 03:47 FiO2 93% 08/04/19 11:10 Sodium 131.9 mmol/L (137-145) L 08/05/19 03:47 Potassium 4.2 mmol/L (3.6-5.0) 08/05/19 03:47 Chloride 97 mmol/L (98-107) L 08/05/19 03:47 Carbon Dioxide 22 mmol/L (22-30) 08/05/19 03:47 Anion Gap 13 (5-19) 08/05/19 03:47 BUN 23 mg/dL (7-20) H 08/05/19 03:47 Creatinine 3.57 mg/dL (0.52-1.25) H 08/05/19 03:47 Est GFR ( Amer) 16 (>60) L 08/05/19 03:47 Est GFR (MDRD) Non-Af 13 (>60) L 08/05/19 03:47 Glucose 241 mg/dL (75-110) H 08/05/19 03:47 POC Glucose 158 mg/dL (70-110) H 08/04/19 18:48 Hemoglobin A1c % 7.1 % (4.7-6.0) H 08/04/19 08:25 Lactic Acid 1.1 mmol/L (0.7-2.1) 08/05/19 03:47 Calcium 9.2 mg/dL (8.4-10.2) 08/05/19 03:47 Phosphorus 6.2 mg/dL (2.5-4.5) H D 08/05/19 03:47 Magnesium 1.8 mg/dL (1.6-2.3) 08/05/19 03:47 Total Bilirubin 1.0 mg/dL (0.2-1.3) 08/05/19 03:47 Direct Bilirubin 0.4 mg/dL (0.0-0.4) 08/05/19 03:47 Neonat Total Bilirubin Not Reportable 08/05/19 03:47 Neonat Direct Bilirubin Not Reportable 08/05/19 03:47 Neonat Indirect Bili Not Reportable 08/05/19 03:47 AST 561 U/L (14-36) H 08/05/19 03:47 ALT 525 U/L (<35) H 08/05/19 03:47 Alkaline Phosphatase 165 U/L (38-126) H 08/05/19 03:47 Ammonia < 8.7 umol/L (9-33) L 08/05/19 03:47 CK-MB (CK-2) 3.35 ng/mL (<4.55) 08/04/19 08:25 Troponin I 0.835 ng/mL 08/05/19 03:47 Total Protein 6.3 g/dL (6.3-8.2) 08/05/19 03:47 Albumin 3.2 g/dL (3.5-5.0) L 08/05/19 03:47 Amylase 39 U/L (30-110) 08/04/19 08:25 Lipase 147.4 U/L (23-300) 08/04/19 08:25 TSH 1.88 uIU/mL (0.47-4.68) 08/04/19 08:25 Free T4 1.72 ng/dL (0.78-2.19) 08/04/19 08:25 Random Cortisol 47.80 ug/dL (None Established) 08/04/19 08:25 Urine Color YELLOW 08/04/19 07:40 Urine Appearance SLIGHTLY-CLOUDY 08/04/19 07:40 Urine pH 6.0 (5.0-9.0) 08/04/19 07:40 Ur Specific [place] 1.015 08/04/19 07:40 Urine Protein >=500 mg/dL (NEGATIVE) H 08/04/19 07:40 Urine Glucose (UA) >=500 mg/dL (NEGATIVE) H 08/04/19 07:40 Urine Ketones NEGATIVE mg/dL (NEGATIVE) 08/04/19 07:40 Urine Blood MODERATE (NEGATIVE) H 08/04/19 07:40 Urine Nitrite (Reflex) NEGATIVE (NEGATIVE) 08/04/19 07:40 Urine Bilirubin NEGATIVE (NEGATIVE) 08/04/19 07:40 Urine Urobilinogen NEGATIVE mg/dL (<2.0) 08/04/19 07:40 Leukocyte Esterase Rfl TRACE (NEGATIVE) H 08/04/19 07:40 Urine RBC (Auto) 3 /HPF 08/04/19 07:40 Urine WBC (Reflex) 6 /HPF 08/04/19 07:40 Squamous Epi Cells Auto 2 /HPF 08/04/19 07:40 Urine Mucus (Auto) RARE /LPF 08/04/19 07:40 Urine Ascorbic Acid NEGATIVE (NEGATIVE) 08/04/19 07:40 Urine Opiates Screen UNCONFIRMED POSITIVE 08/04/19 07:40 Urine Methadone Screen NEGATIVE 08/04/19 07:40 Ur Barbiturates Screen NEGATIVE 08/04/19 07:40 Ur Phencyclidine Scrn NEGATIVE 08/04/19 07:40 Ur Amphetamines Screen NEGATIVE 08/04/19 07:40 U Benzodiazepines Scrn UNCONFIRMED POSITIVE 08/04/19 07:40 Urine Cocaine Screen NEGATIVE 08/04/19 07:40 U Marijuana (THC) Screen NEGATIVE 08/04/19 07:40 Slides for Path Review Cancelled 08/05/19 03:47 08/04/19 08/04/19 08/04/19 08:25 14:21 20:53 CK-MB (CK-2) 3.35 Troponin I 0.244 0.653 0.908 08/05/19 03:47 CK-MB (CK-2) Troponin I 0.835 EKG Comments: NSR, prolonged QT. Impressions: Head CT 08/04/19 00:00 IMPRESSION: No acute intracranial abnormality. EVIDENCE OF ACUTE STROKE: NO. Chest X-Ray 08/04/19 07:42 IMPRESSION: Moderate cardiomegaly with mild pulmonary edema. Hazy peripheral opacity in the right mid lung may represent infectious or inflammatory process. Chest X-Ray 08/05/19 06:00 IMPRESSION: Old CABG, moderate cardiomegaly. No infiltrates. Plan Health Concerns: Still not fully known why she got ill. Recurrance. Plan of Treatment: Discharge home Goals: Back to baseline. Critical Time: 30 Level of Care: MEDICAL Stroke Is this a Stroke Patient?: No Acute Heart Failure - Is this a Heart Failure Patient?: No
[2019-08-05] MEDS ORDERED: CLONAZEPAM 1 MG TABLET PO PRN (16:08)
[2019-08-05] MEDS ORDERED: SEVELAMER CARBONATE 800 MG PO SCH (17:00)
[2019-08-05] MEDS ORDERED: SEVELAMER HCL 800 MG TABLET PO SCH (17:00)
[2019-08-05] MEDS ORDERED: (PENDING PHARMACY ID) (Carvedilol [Carvedilol] 25 MG) PO SCH (18:00)
[2019-08-05] MEDS ORDERED: CEFEPIME HCL 0.5 GM in DEXTROSE 5%-WATER 25 ML IV SCH (18:00)
[2019-08-05] MEDS ORDERED: METHOCARBAMOL 500 MG TABLET PO SCH (18:00)
[2019-08-05] MEDS ORDERED: CEFEPIME HCL 0.5 GM in NORMAL SALINE 25 ML IV SCH (18:00)
[2019-08-05] MEDS ORDERED: INSULIN GLARGINE,HUM.REC.ANLOG 1,000 UNIT/10 ML VIAL SUBCUT SCH (22:00)
[2019-08-05] MEDS ORDERED: CARVEDILOL 12.5 MG TABLET PO SCH (22:00)
[2019-08-06] MEDS ORDERED: FUROSEMIDE 80 MG TABLET PO SCH (08:00)
[2019-08-06] MEDS ORDERED: METOLAZONE 5 MG TABLET PO SCH (08:00)
[2019-08-06] MEDS ORDERED: ATORVASTATIN CALCIUM 40 MG TABLET PO SCH (10:00)
[2019-08-06] MEDS ORDERED: [UNRECOGNIZED DRUG - OTHER] PO SCH (10:00)
[2019-08-06] MEDS ORDERED: MULTIVITAMIN TABLET PO SCH (10:00)
[2019-08-06] MEDS ORDERED: FERROUS FUM PO SCH (10:00)
[2019-08-06] MEDS ORDERED: UMECLIDINIUM BROMIDE 62.5 MCG/DOSE IH SCH (10:00)
[2019-08-06] MEDS ORDERED: (PENDING PHARMACY ID) (Tiotropium Bromide [Spiriva Respimat] 2 PUFF) IH SCH (10:00)
[2019-08-06] MEDS ORDERED: (PENDING PHARMACY ID) (Potassium Chloride [Klor-Con M20] 20 MEQ) PO SCH (10:00)
[2019-08-06] MEDS ORDERED: ZINC OX PO SCH (10:00)
[2019-08-06] MEDS ORDERED: D3 PO SCH (10:00)
[2019-08-06] MEDS ORDERED: POTASSIUM CHLORIDE 10 MEQ TABLET.ER PO SCH (10:00)
--- NOTE | 2019-08-07 11:51 | PDOC CONSULTATION ---
Consultation Consult Date: 08/04/19 Provider Consulted: Juan Francisco LYNN Consult reason:: ESRD for urgent Hemodialysis in the face of septic shock and severe hyperkalemia History of Present Illness Admission Date/PCP: 08/04/19 08:26 JENNIFER KRAMER History of Present Illness: HUSSAIN HORTON is a 63 year old withh a history of ESRD on dialysis in the background of diabetes and hypertension, CAD- CABG was admitted with history of altered mental status after having recently undergone lung biopsy under sedation yesterday. Evaluations in the ER revealed that the patient had bradycardia with hypotension that was treated with atropine and transiently with Levophed. She had very difficult IV access and an intraosseous catheter was placed. Her EKG showed bradycardia which was an accelerated junctional rhythm and a right bundle branch block. It was very difficult to get a history from her and she was very lethargic.After evaluations in the ER revealed that the patient had leukocytosis, high potassium of 6.6, metabolic acidosis and abnormal LFTs. CAT scan shows negative for any head pathology, chest x-ray shows a right upper lobe mass but no pneumothorax specifically. She dialyzes in at [facility] and is under the care of 1 of my partners from [place] Dr. Rick Mueller. Patient was subsequently currently seen on dialysis. She is a little bit more awake and not as lethargic as she was when I saw her earlier today. She denies any history of chest pain or shortness of breath. Dialysis orders were reviewed with the treating dialysis nurse. Past Medical History Cardiac Medical History: Reports: Coronary Artery Disease, Hyperlipidemia, Hypertension-primary, Myocardial Infarction Endocrine Medical History: Reports: Diabetes Mellitus Type 2 Renal/ Medical History: Reports: End Stage Renal Disease, Secondary Hyperparathyroidism, Other - On dialysis Malignancy Medical History: Reports: Other - Has questionable lung mass Psychiatric Medical History: Reports: None Denies: Alcohol Dependency, Depression Past Surgical History Past Surgical History: Reports: Cardiac Catheterization, Coronary Artery Bypass Graft - X4 Social History Lives with: Family, Spouse/Significant other Smoking Status: Former Smoker Electronic Cigarette use?: No Frequency of Alcohol Use: None Hx Recreational Drug Use: No Family History Parental Family History Reviewed: No Children Family History Reviewed: No Sibling(s) Family History Reviewed.: No Medication/Allergy Home Medications: Aspirin [Adult Low Dose Aspirin EC] 81 mg PO DAILY 08/04/19 Atorvastatin Calcium [Lipitor 40 mg Tablet] 40 mg PO DAILY 08/04/19 B,C/Ferrous Fum/FA/D3/Zinc Ox [Prorenal Vital Multivit Tab] 1 tab PO DAILY 08/04/19 Carvedilol 25 mg PO BID 08/04/19 Clonazepam 0.5 mg PO BIDP PRN 08/04/19 Escitalopram Oxalate [Lexapro 10 mg Tablet] 10 mg PO DAILY 08/04/19 Furosemide [Lasix 80 mg Tablet] 80 mg PO QAM 08/04/19 Gabapentin [Neurontin 100 mg Capsule] 200 mg PO ASDIR PRN MDD 200MG 08/04/19 Insulin Aspart [Novolog Flexpen] 0 units SUBCUT .SLIDING SCALE 08/04/19 Insulin Glargine,Hum.rec.anlog [Lantus Insulin 100 Unit/mL Insulin Pen] 80 units SUBCUT QAM 08/04/19 Methocarbamol 500 mg PO TID 08/04/19 Metolazone [Zaroxolyn 5 mg Tablet] 10 mg PO QAM 08/04/19 Oxycodone HCl [Oxy-Ir 5 mg Tablet] 5 mg PO Q6HP PRN 08/04/19 Potassium Chloride [Klor-Con M20] 20 meq PO DAILY 08/04/19 Sevelamer Carbonate 800 mg PO MEALS 08/04/19 Telmisartan 40 mg PO DAILY 08/04/19 Tiotropium [place] [Spiriva Respimat] 2 puff IH DAILY 08/04/19 Allergies/Adverse Reactions: levofloxacin [From Levaquin] Allergy (Verified 08/04/19 08:12) NSAIDS (Non-Steroidal Anti-Inflamma Allergy (Verified 08/04/19 08:12) Review of Systems ROS unobtainable: Due to mental status Cardiovascular: ABSENT: chest pain Respiratory: ABSENT: dyspnea, hemoptysis Gastrointestinal: ABSENT: nausea, vomiting Neurological: ABSENT: focal weakness Physical Exam Vital Signs: Temp Pulse Resp BP Pulse Ox 97.5 F 88 16 133/110 H 97 08/04/19 12:36 08/04/19 12:42 08/04/19 12:42 08/04/19 12:42 08/04/19 12:42 Intake & Output 08/03/19 08/04/19 08/05/19 06:59 06:59 06:59 Intake Total 2732 Balance 2732 Weight 90.7 kg General appearance: PRESENT: no acute distress Exam: She is currently lethargic when I saw her earlier in the day. However during dialysis she is a bit more awake and more responsive. Eye exam: PRESENT: EOMI, PERRLA. ABSENT: scleral icterus Ear exam: PRESENT: normal external ear exam Mouth exam: ABSENT: moist Neck exam: ABSENT: lymphadenopathy, meningismus, tenderness, thyromegaly, tracheal deviation Respiratory exam: PRESENT: clear to auscultation malissa, decreased breath sounds. ABSENT: crackles Cardiovascular exam: PRESENT: +S1, +S2 GI/Abdominal exam: PRESENT: normal bowel sounds, soft. ABSENT: organomegaly, tenderness Extremities exam: PRESENT: pedal edema Neurological exam: PRESENT: altered Skin exam: ABSENT: cyanosis, erythema, mottled, rash Results Laboratory Results: 08/04/19 08:25 08/04/19 08:25 08/04/19 08/04/19 08/04/19 07:40 07:45 08:25 WBC 11.6 H RBC 3.21 L Hgb 10.8 L Hct 33.0 L MCV 103 H MCH 33.7 H MCHC 32.8 RDW 14.9 H Plt Count 318 Seg Neutrophils % Not Reportable Carbonic Acid HCO3/H2CO3 Ratio ABG pH ABG pCO2 ABG pO2 ABG HCO3 ABG O2 Saturation ABG Base Excess VBG pH VBG pCO2 VBG HCO3 VBG Base Excess FiO2 Sodium Potassium Chloride Carbon Dioxide Anion Gap BUN Creatinine Est GFR ( Amer) Glucose Lactic Acid 7.5 H Calcium Phosphorus Magnesium Total Bilirubin AST Alkaline Phosphatase Ammonia Total Protein Albumin Amylase Lipase TSH Free T4 Urine Color YELLOW Urine Appearance SLIGHTLY-CLOUDY Urine pH 6.0 Ur Specific [place] 1.015 Urine Protein >=500 H Urine Glucose (UA) >=500 H Urine Ketones NEGATIVE Urine Blood MODERATE H Urine RBC (Auto) 3 08/04/19 08/04/19 08/04/19 08:25 08:25 08:43 WBC RBC Hgb Hct MCV MCH MCHC RDW Plt Count Seg Neutrophils % Carbonic Acid HCO3/H2CO3 Ratio ABG pH ABG pCO2 ABG pO2 ABG HCO3 ABG O2 Saturation ABG Base Excess VBG pH 7.09 L* VBG pCO2 54.8 VBG HCO3 16.4 L VBG Base Excess -13.5 FiO2 Sodium 131.4 L Potassium 6.6 H* Chloride 100 Carbon Dioxide 15 L Anion Gap 16 BUN 32 H Creatinine 5.18 H Est GFR ( Amer) 10 L Glucose 191 H Lactic Acid Calcium 8.2 L Phosphorus 9.2 H Magnesium 2.2 Total Bilirubin 2.1 H AST 190 H Alkaline Phosphatase 131 H Ammonia Total Protein 6.0 L Albumin 3.1 L Amylase 39 Lipase 147.4 TSH 1.88 Free T4 1.72 Urine Color Urine Appearance Urine pH Ur Specific [place] Urine Protein Urine Glucose (UA) Urine Ketones Urine Blood Urine RBC (Auto) 08/04/19 08/04/19 08/04/19 10:08 10:45 11:10 WBC RBC Hgb Hct MCV MCH MCHC RDW Plt Count Seg Neutrophils % Carbonic Acid 1.87 H HCO3/H2CO3 Ratio 11:1 ABG pH 7.17 L* ABG pCO2 62.1 H ABG pO2 68.2 L ABG HCO3 21.9 ABG O2 Saturation 88.0 L ABG Base Excess -7.0 VBG pH VBG pCO2 VBG HCO3 VBG Base Excess FiO2 93% Sodium Potassium Chloride Carbon Dioxide Anion Gap BUN Creatinine Est GFR ( Amer) Glucose Lactic Acid 2.0 Calcium Phosphorus Magnesium Total Bilirubin AST Alkaline Phosphatase Ammonia < 8.7 L Total Protein Albumin Amylase Lipase TSH Free T4 Urine Color Urine Appearance Urine pH Ur Specific [place] Urine Protein Urine Glucose (UA) Urine Ketones Urine Blood Urine RBC (Auto) 08/04/19 08:25 CK-MB (CK-2) 3.35 Troponin I 0.244 Impressions: Head CT 08/04/19 00:00 IMPRESSION: No acute intracranial abnormality. EVIDENCE OF ACUTE STROKE: NO. Chest X-Ray 08/04/19 07:42 IMPRESSION: Moderate cardiomegaly with mild pulmonary edema. Hazy peripheral opacity in the right mid lung may represent infectious or inflammatory process. Assessment & Plan - Diagnosis (1) Acute metabolic encephalopathy Is this a current diagnosis for this admission?: Yes Plan: Most Likely secondary to drug effect. She seems to be more awakening to a short time on dialysis. Continue on the same and monitor. However other issues like infections especially given the lactic acidosis needs to be carefully monitored. Discussed with assistant producer. (2) ESRD on hemodialysis Plan: patient now currently undergoing dialysis. Vital signs are now more stable and she is normotensive unlike earlier when she was in the ER when she was hypotensive. Dialysis being supervised to ensure safe and smooth procedure. Plan to remove between 1-2 L as tolerated. Dialysis orders were reviewed with the treating dialysis nurse. (3) Hyperkalemia, diminished renal excretion Is this a current diagnosis for this admission?: Yes Plan: She is on a 1K followed by 2K bath. See response to dialysis. (4) Lung mass Is this a current diagnosis for this admission?: Yes Plan: Status post lung biopsy yesterday. (5) Hypertension Plan: Currently normotensive. (6) Lactic acidosis Is this a current diagnosis for this admission?: Yes Plan: Monitor. Exclude possibility of infections. Possibly would need antibiotic coverage with broad-spectrum antibiotics pending cultures while she is being evaluated. (7) Diabetes mellitus Plan: Monitor for hypoglycemia.
[2019-08-07] MEDS ORDERED: VANCOMYCIN HCL 750 MG in DEXTROSE 5%-WATER 250 ML IV SCH (18:00)
== END 2019-08-05 16:30 | disposition home or self-care (01) | DRG 91 ==
LOC: ER 07:27 → EH 08:26 → ICU 12:20
PROVIDERS: ADMIT Internal Medicine Critical Care Medicine; ATTEND Internal Medicine Critical Care Medicine
PROC: 5A1D70Z Performance of Urinary Filtration, Intermittent, Less than 6 Hours Per Day (ICD-10-PCS; principal; 2019-08-04)
DX: G92 Toxic encephalopathy (principal); G93.41 Metabolic encephalopathy; N18.6 End stage renal disease; N17.9 Acute kidney failure, unspecified; E87.2 Acidosis; I12.0 Hypertensive chronic kidney disease with stage 5 chronic kidney disease or end stage renal disease; N25.81 Secondary hyperparathyroidism of renal origin; I45.2 Bifascicular block; I47.1 Supraventricular tachycardia; I95.2 Hypotension due to drugs; R91.8 Other nonspecific abnormal finding of lung field; E11.22 Type 2 diabetes mellitus with diabetic chronic kidney disease; E87.5 Hyperkalemia; I25.10 Atherosclerotic heart disease of native coronary artery without angina pectoris; E78.5 Hyperlipidemia, unspecified; D63.1 Anemia in chronic kidney disease; I87.2 Venous insufficiency (chronic) (peripheral); R40.2422 Glasgow coma scale score 9-12, at arrival to emergency department; T50.905A Adverse effect of unspecified drugs, medicaments and biological substances, initial encounter; Y92.9 Unspecified place or not applicable; E66.9 Obesity, unspecified; I25.2 Old myocardial infarction; Z99.2 Dependence on renal dialysis; Z79.4 Long term (current) use of insulin; Z79.899 Other long term (current) drug therapy; Z79.82 Long term (current) use of aspirin; Z95.1 Presence of aortocoronary bypass graft; Z87.891 Personal history of nicotine dependence; Z88.6 Allergy status to analgesic agent; Z88.3 Allergy status to other anti-infective agents; Z93.0 Tracheostomy status
CPT/HCPCS: 36415; 36600; 70450; 71045; 80053; 80307; 81001; 82140; 82150; 82533; 82553; 82803; 82962; 83036; 83605; 83690; 83735; 84100; 84132; 84145; 84439; 84443; 84484; 85025; 85610; 85730; 87040; 87086; 93005; 93010; 93306; 96365; 96375; 99238; 99291; 99292; J0461; J0610; J0692; J1200; J1644; J1756; J1815; J2543; J3370; J3490; J7030; J7060

== ENCOUNTER 2019-11-14 21:19 | Emergency (ER) | payer BC, MEDICARE ==
[2019-11-14 21:41] VITALS: BP 163/79
== END 2019-11-14 22:00 | disposition left against medical advice (07) ==
LOC: ER 21:19
DX: Z53.21 Procedure and treatment not carried out due to patient leaving prior to being seen by health care provider (principal)